=== PATIENT | male | born 1960 | race Hispanic/Latino ===

== ENCOUNTER 2022-06-16 18:35 | Inpatient (IN) | payer OTHER, SELFPAY ==
[2022-06-16] MEDS ORDERED: TETANUS, DIPHTHERIA TOX,ADULT (TDVAX) 0.5 ML VIAL IM ONE (21:11)
[2022-06-16] MEDS ORDERED: Dextrose 5% in Water 1,000 ML IV PRN (21:11)
[2022-06-16] MEDS ORDERED: Ondansetron PF 4 MG/2 ML Vial IVP PRN (21:11)
[2022-06-16] MEDS ORDERED: Ondansetron ODT 4 MG TAB PO PRN (21:11)
[2022-06-16] MEDS ORDERED: Dextrose 50% Abboject 50 ML SYRINGE SLOW IVP PRN (21:11)
[2022-06-16] MEDS ORDERED: traMADol HCl 50 MG TAB PO PRN (21:13)
[2022-06-16] MEDS ORDERED: Morphine 2 MG/ML VIAL SLOW IVP PRN (21:14)
[2022-06-16] MEDS: Acetaminophen 325 MG TAB PO SCH (22:31)
[2022-06-16] MEDS: traMADol HCl 50 MG TAB PO SCH (22:31)
[2022-06-16] MEDS: Ibuprofen 200 MG TAB PO SCH (22:31)
[2022-06-16 22:46] VITALS: BMI 24.7
[2022-06-16] MEDS ORDERED: Lactated Ringer's 1,000 ML IV SCH (23:59)
[2022-06-17 00:02] LABS: SARS-CoV-2 NAA Rapid Test Not Detected (NotDetected)
[2022-06-17] MEDS: Acetaminophen 325 MG TAB PO SCH ×3 (05:58→17:07)
[2022-06-17] MEDS: Ibuprofen 200 MG TAB PO SCH ×3 (05:59→21:55)
[2022-06-17] MEDS: traMADol HCl 50 MG TAB PO SCH ×3 (05:59→17:08)
[2022-06-17 07:08] LABS: #Eosinphils 0.1 thou/uL (0.0-0.7); #Lymphocytes 1.6 thou/uL (1.20-3.40); #Monocytes 0.4 thou/uL (0.11-0.59); #Neutrophils 3.6 thou/uL (1.40-6.50); %Basophils 0.5 % (0.0-1.0); %Eosinophils 1.2 % (0.0-10.0); %Lymphocytes 28.2 % (21.0-51.0); %Monocytes 7.7 % (0.0-10.0); %Neutrophils 62.3 % (42.0-75.0); Hemoglobin 11.8 g/dL (14.0-18.0); Mean Corpuscular HGB CONC 35.1 g/dL (32.0-36.0); Mean Corpuscular Hemoglobin 32.7 pg (27.0-31.0); Mean Corpuscular Volume 93.2 fl (78.0-98.0); Mean Platelet Volume 9.5 fL (7.4-10.4); Platelet Count 153 10x3/uL (130-400); RBC Distribution Width 11.8 % (11.5-14.5); Red Blood Cell (RBC) Count 3.61 mill/uL (4.70-6.10); White Blood Cell (WBC) Count 5.8 10x3/uL (4.8-10.8)
[2022-06-17 07:26] LABS: Anion Gap 11 mmol/L (10-20); BUN (Urea Nitrogen) 11 mg/dL (8.4-25.7); Calc. Creatinine Clearance 97 mL/min (70-130); Calcium 8.2 mg/dL (7.8-10.44); Carbon Dioxide 23 mmol/L (23-31); Chloride 109 mmol/L (98-107); Estimated GFR 102; Glucose 97 mg/dL (80-115); Magnesium 1.7 mg/dL (1.6-2.6); Phosphorus 3.2 mg/dL (2.3-4.7); Potassium 3.5 mmol/L (3.5-5.1); Sodium 139 mmol/L (136-145)
[2022-06-17] MEDS: Amoxicillin/Potassium Clav 875 MG TAB PO SCH ×2 (09:03→21:52)
[2022-06-17] MEDS: Gabapentin 300 MG CAP PO SCH ×3 (09:03→21:56)
[2022-06-17] MEDS: Famotidine 20 MG TAB PO SCH ×2 (09:03→21:53)
[2022-06-17] MEDS: Ascorbic Acid 500 mg Chewable Tablet PO SCH (09:05)
[2022-06-17] MEDS ORDERED: fentaNYL PF 100 MCG/2 ML SYRINGE ONE ×2 (10:07→11:54)
[2022-06-17] MEDS ORDERED: HYDROmorphone 0.5 MG/0.5 ML SYRINGE ONE (10:07)
[2022-06-17] MEDS ORDERED: TETANUS, DIPHTHERIA TOX,ADULT (TDVAX) 0.5 ML VIAL IM ONE (10:49)
[2022-06-17] MEDS ORDERED: Communication Order-Pharmacy FS SCH (11:00)
[2022-06-17] MEDS ORDERED: Bupivacaine HCl 0.5%/Epinephrine 1:200,000/PF 30 ml Vial ONE (11:09)
[2022-06-17] MEDS ORDERED: Neomycin-Polymyxin 1 ML AMP ONE (11:09)
[2022-06-17] MEDS ORDERED: Sodium Chloride 0.9% 100 ML ONE (11:19)
[2022-06-17] MEDS ORDERED: CEFAZOLIN 2 GM VIAL ONE (11:19)
[2022-06-17] MEDS ORDERED: Lidocaine 1% PF 5 ML VIAL ONE (11:30)
[2022-06-17] MEDS ORDERED: PROPOFOL 200 MG/20 ML VIAL ONE (11:30)
[2022-06-17] MEDS ORDERED: Ondansetron HCl/PF 4 MG/2 ML Vial IVP PRN (13:10)
[2022-06-17] MEDS ORDERED: Promethazine HCl 25 MG/ML VIAL IM PRN (13:10)
[2022-06-17] MEDS ORDERED: Fentanyl 100 MCG/2 ML VIAL ONE (13:34)
[2022-06-17] MEDS: CEFAZOLIN 2 GM in Sodium Chloride 0.9% 100 ML IVPB SCH ×2 (14:10→21:52)
[2022-06-17] MEDS: Aspirin 81 mg Enteric Coated Tablet PO SCH (21:52)
[2022-06-18] MEDS: traMADol HCl 50 MG TAB PO SCH ×3 (00:19→13:11)
[2022-06-18] MEDS: Acetaminophen 325 MG TAB PO SCH ×3 (00:19→13:12)
[2022-06-18] MEDS: Ibuprofen 200 MG TAB PO SCH ×2 (06:13→13:12)
[2022-06-18] MEDS ORDERED: Senokot S 8.6-50 MG TAB PO SCH (09:00)
[2022-06-18] MEDS: Amoxicillin/Potassium Clav 875 MG TAB PO SCH (09:05)
[2022-06-18] MEDS: Gabapentin 300 MG CAP PO SCH (09:06)
[2022-06-18] MEDS: Ascorbic Acid 500 mg Chewable Tablet PO SCH (09:06)
[2022-06-18] MEDS: Famotidine 20 MG TAB PO SCH (09:06)
[2022-06-18] MEDS: Aspirin 81 mg Enteric Coated Tablet PO SCH (09:06)
[2022-06-18 11:35] VITALS: BP 118/71; TEMP 98.1
== END 2022-06-18 13:40 | disposition home or self-care (01) | DRG 493 ==
LOC: SURG A 20:36 → OBSVTOIN 21:11
PROVIDERS: ADMIT Surgery; ATTEND Surgery
PROC: 0PSF04Z Reposition Right Humeral Shaft with Internal Fixation Device, Open Approach (ICD-10-PCS; principal; 2022-06-17)
DX: S42.411A Displaced simple supracondylar fracture without intercondylar fracture of right humerus, initial encounter for closed fracture (principal); E87.20 Acidosis, unspecified; S02.109A Fracture of base of skull, unspecified side, initial encounter for closed fracture; S02.31XA Fracture of orbital floor, right side, initial encounter for closed fracture; S02.2XXA Fracture of nasal bones, initial encounter for closed fracture; W20.8XXA Other cause of strike by thrown, projected or falling object, initial encounter; S06.300A Unspecified focal traumatic brain injury without loss of consciousness, initial encounter; E87.6 Hypokalemia; Z20.822 Contact with and (suspected) exposure to COVID-19; Y92.89 Other specified places as the place of occurrence of the external cause
CPT/HCPCS: 36415; 80048; 83735; 84100; 85025; C1713; J1170; J2704; J3010; J3490; J7120; U0002